=== PATIENT | male | born 1960 | race Caucasian/White ===

== ENCOUNTER → 2016-09-17 | Day surgery (SDC) | payer BC ==
[~2016-09-17] VITALS: Ht 157.5 cm; Wt 86.2 kg
== END ==
LOC: OPS 07:14
PROC: 0DB48ZX Excision of Esophagogastric Junction, Via Natural or Artificial Opening Endoscopic, Diagnostic (ICD-10-PCS; principal; 2016-09-17)
DX: K21.9 Gastro-esophageal reflux disease without esophagitis (principal); K22.70 Barrett's esophagus without dysplasia; R10.13 Epigastric pain; R12 Heartburn; J44.9 Chronic obstructive pulmonary disease, unspecified; M19.90 Unspecified osteoarthritis, unspecified site; E78.5 Hyperlipidemia, unspecified; E78.00 Pure hypercholesterolemia, unspecified; M54.16 Radiculopathy, lumbar region; G62.9 Polyneuropathy, unspecified; I51.7 Cardiomegaly; M48.00 Spinal stenosis, site unspecified; Z79.899 Other long term (current) drug therapy
CPT/HCPCS: 94664; 99070; J2704